=== PATIENT | male | born 1980 | race African-American/Black ===

== ENCOUNTER 2017-05-29 18:19 | Emergency (ER) | payer OTHER ==
[~2017-05-29] VITALS: Ht 185.4 cm; Wt 98.4 kg
== END 2017-05-29 21:05 | disposition home or self-care (01) ==
LOC: CED 18:19 → CFTX 18:19
DX: S61.215A Laceration without foreign body of left ring finger without damage to nail, initial encounter (principal); F17.210 Nicotine dependence, cigarettes, uncomplicated; W45.8XXA Other foreign body or object entering through skin, initial encounter; Y92.009 Unspecified place in unspecified non-institutional (private) residence as the place of occurrence of the external cause
CPT/HCPCS: 12001; 99283